=== PATIENT | female | born 1955 | race Caucasian/White ===

== ENCOUNTER 2017-12-13 10:44 | Day surgery (SDC) | payer BC ==
[~2017-12-13 10:44] MED LIST: Lactated Ringers 1,000 ML IV SCH; Sodium Chloride 0.9% 10 ML Syringe FLUSH PRN; Sodium Chloride 0.9% 2.5 ML Syringe FLUSH PRN
--- NOTE | 2017-12-13 11:14 | PCM.PREANE ---
Preanesthetic Assessment - Anesthesia/Transfusion/Family Hx Anesthesia History: Prior Anesthesia Without Reaction Family History of Anesthesia Reaction: No Transfusion History: No Prior Transfusion(s) Intubation History: Unknown - Review of Systems General: No Symptoms Pulmonary: No Symptoms Cardiovascular: No Symptoms Gastrointestinal: No Symptoms, Other (colonoscopy in was normal) Neurological: No Symptoms Other: Reports: None - Physical Assessment Height: 1.63 m Weight: 90.718 kg ASA Class: 2 Mental Status: Alert & Oriented x3 Airway Class: Mallampati = 2 Dentition: Reports: Normal Dentition Thyro-Mental Finger Breadths: 3 Mouth Opening Finger Breadths: 3 ROM/Head Extension: Full Lungs: Clear to Auscultation, Normal Respiratory Effort Cardiovascular: Regular Rate, Regular Rhythm - Allergies Allergies/Adverse Reactions: Allergies Allergy/AdvReac Type Severity Reaction Status Date / Time No Known Allergies Allergy Verified 12/08/17 10:59 - Blood Blood Available: No - Anesthesia Plan Pre-Op Medication Ordered: None - Acknowledgements Anesthesia Type Planned: MAC Pt an Appropriate Candidate for the Planned Anesthesia: Yes Alternatives and Risks of Anesthesia Discussed w Pt/Guardian: Yes Pt/Guardian Understands and Agrees with Anesthesia Plan: Yes PreAnesthesia Questionnaire HEENT History: Reports: Allergic Rhinitis, Other (See Below) Other HEENT History: 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, wears glasses Cardiovascular History: Reports: High Cholesterol Gastrointestinal History: Reports: None 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: Musculoskeletal History: Reports: Arthritis Endocrine/Metabolic History: Reports: Obesity/BMI 30+ - Past Surgical History Head Surgeries/Procedures: Reports: None HEENT Surgical History: Reports: Naso-Sinus Surgery GI Surgical History: Reports: Colonoscopy () Female Surgical History: Reports: Breast Biopsy Oncologic Surgical History: Reports: Biopsy of Breast - SUBSTANCE USE Smoking Status *Q: Never Smoker Recreational Drug Use History: No - HOME MEDS Home Medications: Home Meds Fluticasone Propionate [Flonase Allergy Relief] 1 spray NASBOTH BID 12/08/17 [ History] Montelukast Sodium 10 mg PO BEDTIME 12/08/17 [History] atorvaSTATin Calcium [Atorvastatin Calcium] 20 mg PO BEDTIME 12/08/17 [History] - CURRENT (IN HOUSE) MEDS Current Meds: Current Medications Lactated Ringer's (Ringers, Lactated) 1,000 mls @ 125 mls/hr IV ASDIRECTED NASIR Sodium Chloride (Saline Flush) 10 ml FLUSH ASDIRECTED PRN PRN Reason: Keep Vein Open Sodium Chloride (Saline Flush) 2.5 ml FLUSH ASDIRECTED PRN PRN Reason: Keep Vein Open
[2017-12-13] MEDS ORDERED: Propofol 200 MG/20 ML SDV ONE ×2 (12:41→13:20)
[2017-12-13] MEDS ORDERED: Lidocaine 2% 5 ML SDV ONE (12:41)
[2017-12-13] MEDS ORDERED: fentaNYL 100 MCG/2 ML SDV ONE (12:41)
[2017-12-13] MEDS ORDERED: Midazolam 1 MG/ML 2 ML SDV ONE (12:42)
--- NOTE | 2017-12-13 13:43 | PCM.OPNOTE ---
- General Post-Op/Procedure Note Date of Surgery/Procedure: 12/13/17 Operative Procedure(s): Screening colonoscopy Findings: 2 ascending colon polyps, transverse colon polyp, hepatic flexure polyp Pre Op Diagnosis: screening colonoscopy Post-Op Diagnosis: 2 ascending colon polyps, transverse colon polyp, hepatic flexure polyp Anesthesia Technique: MAC Primary Surgeon: Brittny Upton Condition: Good
--- NOTE | 2017-12-13 14:00 | PCM.POSTAN ---
POST ANESTHESIA ASSESSMENT - MENTAL STATUS Mental Status: Alert, Oriented - RESPIRATORY Respiratory Status: Respiratory Rate WNL, Airway Patent, O2 Saturation Stable - CARDIOVASCULAR CV Status: Pulse Rate WNL - GASTROINTESTINAL GI Status: No Symptoms - PAIN Pain Score: 0 - POST OP HYDRATION Hydration Status: Adequate & Stable - OBSERVATIONS Free Text/Narrative:: no anesthesia problems
--- NOTE | 2017-12-13 21:33 | OR ---
SURGEON: BRITTNY UPTON MD DATE OF PROCEDURE: 12/13/2017 PREOPERATIVE DIAGNOSIS: Screening colonoscopy. POSTOPERATIVE DIAGNOSES: 1. Transverse colon polyp. 2. Hepatic flexure polyp. 3. Ascending colon polyps x2. PROCEDURE PERFORMED: Colonoscopy. ENDOSCOPIST: Brittny Upton MD ANESTHESIA: MAC. INSTRUMENT USED: Olympus colonoscope. EXTENT OF EXAM: To the cecum. PREPARATION: Good. LIMITATIONS: None. INDICATION FOR EXAMINATION: The patient is a 62-year-old female who presents for a repeat colonoscopy. She had one 10 years ago, which was normal. We discussed the procedure as well as expected perioperative course. We discussed the risks including bleeding, infection, or damage to surrounding structures including perforation. The patient verbalized understanding and wishes to proceed. PROCEDURE IN DETAIL: The patient was brought to the endoscopy suite and placed in a left lateral decubitus position. A time-out was completed verifying the patient's name, age, date of , allergies, and procedure to be performed. Monitored anesthesia care was induced and continuous oxygen was provided via nasal cannula throughout the procedure. After adequate sedation was achieved, a digital rectal exam was performed. This exam was within normal limits. A well-lubricated colonoscope was then inserted in the rectum and advanced under direct visualization at the level of the cecum. The cecum was identified by both visual and anatomic landmarks. A photograph was taken of the cecal cap, however, I was unable to retroflex the scope within the cecum to take a picture due to looping of the scope more proximally. The scope was then fully withdrawn while examining the color, texture, anatomy, and integrity of the mucosa from the cecum to the anal canal. The patient has had 2 polyps in the distal ascending colon. These were removed using a cold biopsy forceps. There was some bleeding with this, however, the bleeding ceased on its own. I continued to monitor the area and checked on it a second time and the area appeared to be hemostatic. The patient also had a small polyp at the hepatic flexure and in the transverse colon. These were both removed using a cold biopsy forceps. Both areas were hemostatic at the end of the biopsy. The remainder of the colonoscopy was normal. The scope was then brought into the rectum and retroflexed to allow visualization of the anal canal opening. This appeared normal and a photograph was taken. The scope was then straightened out and removed from the patient. Cecum to anus time was 16 minutes. The patient tolerated the procedure well and was taken to PACU in stable condition. ENDOSCOPIC DIAGNOSES: 1. Transverse colon polyp. 2. Hepatic flexure polyp. 3. Ascending colon polyp x2. RECOMMENDATIONS: Follow up in clinic in 2 weeks. MARIAM ESPINAL /[id number]
== END 2017-12-13 14:20 | disposition home or self-care (01) ==
LOC: MW.SDS 10:44
PROVIDERS: ATTEND Surgery
DX: Z12.11 Encounter for screening for malignant neoplasm of colon (principal); D12.2 Benign neoplasm of ascending colon; D12.3 Benign neoplasm of transverse colon; J30.2 Other seasonal allergic rhinitis; E78.00 Pure hypercholesterolemia, unspecified; E66.9 Obesity, unspecified; Z68.34 Body mass index [BMI] 34.0-34.9, adult; Z79.899 Other long term (current) drug therapy; Z79.51 Long term (current) use of inhaled steroids; Z98.890 Other specified postprocedural states
CPT/HCPCS: 45380; 88305; J2250; J3010; J7120; J2704

== ENCOUNTER 2021-02-04 06:32 | Day surgery (SDC) | payer BC ==
[~2021-02-04 06:32] MED LIST changes: +Sodium Chloride 0.9% 10 ML SDV IV PRN
[2021-02-04] MEDS ORDERED: Ondansetron 4 MG/2 ML SDV ONE (07:12)
[2021-02-04] MEDS ORDERED: Midazolam 1 MG/ML 2 ML SDV ONE (07:12)
[2021-02-04] MEDS ORDERED: Propofol 200 MG/20 ML SDV ONE ×2 (07:12→08:20)
[2021-02-04] MEDS ORDERED: fentaNYL 100 MCG/2 ML SDV ONE (07:12)
--- NOTE | 2021-02-04 07:17 | PCM.PREANE ---
Preanesthetic Assessment - Anesthesia/Transfusion/Family Hx Anesthesia History: Prior Anesthesia Without Reaction Family History of Anesthesia Reaction: No Transfusion History: No Prior Transfusion(s) Intubation History: Unknown - Review of Systems General: No Symptoms Pulmonary: No Symptoms Cardiovascular: No Symptoms Gastrointestinal: No Symptoms Neurological: No Symptoms Other: Reports: None - Physical Assessment NPO Status Date: 02/04/21 NPO Status Time: 00:05 Vital Signs: Last Vital Signs Temp 98.1 F 02/04/21 06:55 Pulse 78 02/04/21 06:55 Resp 16 02/04/21 06:55 BP 131/68 02/04/21 06:55 Pulse Ox 96 02/04/21 06:55 Height: 5 ft 4 in Weight: 178 lb ASA Class: 2 Mental Status: Alert & Oriented x3 Airway Class: Mallampati = 3 Dentition: Reports: Normal Dentition ROM/Head Extension: Full Lungs: Clear to Auscultation, Normal Respiratory Effort Cardiovascular: Regular Rate, Regular Rhythm - Allergies Allergies/Adverse Reactions: Allergies Allergy/AdvReac Type Severity Reaction Status Date / Time No Known Allergies Allergy Verified 02/04/21 06:59 - Anesthesia Plan Pre-Op Medication Ordered: None - Acknowledgements Anesthesia Type Planned: General Anesthesia Pt an Appropriate Candidate for the Planned Anesthesia: Yes Alternatives and Risks of Anesthesia Discussed w Pt/Guardian: Yes Pt/Guardian Understands and Agrees with Anesthesia Plan: Yes Additional Comments: npo hayfever tob none etoh rare no cv problems par no questions PreAnesthesia Questionnaire HEENT History: Reports: Allergic Rhinitis, Other (See Below) Other HEENT History: 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, wears glasses Cardiovascular History: Reports: High Cholesterol Respiratory History: Reports: None Gastrointestinal History: Reports: Colon Polyp Genitourinary History: Reports: None 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: Musculoskeletal History: Reports: None, Arthritis Neurological History: Reports: None Psychiatric History: Reports: None Endocrine/Metabolic History: Reports: Diabetes, Type II Hematologic History: Reports: None Immunologic History: Reports: None Oncologic (Cancer) History: Reports: None Dermatologic History: Reports: None - Past Surgical History Head Surgeries/Procedures: Reports: None HEENT Surgical History: Reports: Naso-Sinus Surgery Cardiovascular Surgical History: Reports: None Respiratory Surgical History: Reports: None GI Surgical History: Reports: Colonoscopy Female Surgical History: Reports: Breast Biopsy, Breast Reduction, Tubal Ligation Endocrine Surgical History: Reports: None Neurological Surgical History: Reports: None Musculoskeletal Surgical History: Reports: None Oncologic Surgical History: Reports: Biopsy of Breast Dermatological Surgical History: Reports: None - SUBSTANCE USE Tobacco Use Status *Q: Never Tobacco User - HOME MEDS Home Medications: Home Meds Fluticasone Propionate [Flonase Allergy Relief] 1 spray NASBOTH BID PRN 12/08/17 [History] atorvaSTATin Calcium [Atorvastatin Calcium] 20 mg PO BEDTIME 12/08/17 [History] Calcium Carb, Citrate/Vit D3 [Calcium + D3 ER Tablet] 1 tab PO DAILY 01/29/21 [History] Cetirizine HCl [Zyrtec] 10 mg PO DAILY 01/29/21 [History] Glucosam/Chond/Collagen/Hyalur [Glucosamine Chondroitin] 1 tab PO DAILY 01/29/21 [History] Inulin [Fiber Choice] 1 tab.chew CHEW DAILY 01/29/21 [History] Lactobacillus Acidophilus [Probiotic] 1 tab PO DAILY 01/29/21 [History] metFORMIN HCl [Metformin HCl] 1,000 mg PO BID 01/29/21 [History] - CURRENT (IN HOUSE) MEDS Current Meds: Current Medications Lactated Ringer's (Ringers, Lactated) 1,000 mls @ 125 mls/hr IV ASDIRECTED NASIR Last Admin: 02/04/21 06:54 Dose: 125 mls/hr Documented by: Sodium Chloride (Sodium Chloride 0.9% 10 Ml Syringe) 10 ml FLUSH ASDIRECTED PRN PRN Reason: Keep Vein Open Sodium Chloride (Sodium Chloride 0.9% 2.5 Ml Syringe) 2.5 ml FLUSH ASDIRECTED PRN PRN Reason: Keep Vein Open Sodium Chloride (Sodium Chloride 0.9% 10 Ml Syringe) 10 ml FLUSH ASDIRECTED PRN PRN Reason: Keep Vein Open Sodium Chloride (Sodium Chloride 0.9% 2.5 Ml Syringe) 2.5 ml FLUSH ASDIRECTED PRN PRN Reason: Keep Vein Open Sodium Chloride (Sodium Chloride 0.9% 10 Ml Sdv) 10 ml IV ASDIRECTED PRN PRN Reason: IV Use Discontinued Medications Fentanyl (Fentanyl 100 Mcg/2 Ml Sdv) Confirm Administered Dose 100 mcg .ROUTE .STK-MED ONE Stop: 02/04/21 07:13 Midazolam HCl (Midazolam 1 Mg/Ml 2 Ml Sdv) Confirm Administered Dose 2 mg .ROUTE .STK-MED ONE Stop: 02/04/21 07:13 Ondansetron HCl (Ondansetron 4 Mg/2 Ml Sdv) Confirm Administered Dose 4 mg .ROUTE .STK-MED ONE Stop: 02/04/21 07:13 Propofol (Propofol 200 Mg/20 Ml Sdv) Confirm Administered Dose 200 mg .ROUTE .STK-MED ONE Stop: 02/04/21 07:13
--- NOTE | 2021-02-04 08:56 | PCM.OPNOTE ---
- General Post-Op/Procedure Note Date of Surgery/Procedure: 02/04/21 Operative Procedure(s): Diagnostic colonoscopy with polypectomy Findings: Ascending colon polyp x 3, transverse colon polyp x 6 Pre Op Diagnosis: History of colon polyps Post-Op Diagnosis: Ascending colon polyps, transverse colon polyps [place] [facility] [place]geon: Brittny Upton Condition: Good
--- NOTE | 2021-02-04 09:23 | PCM.POSTAN ---
POST ANESTHESIA ASSESSMENT - MENTAL STATUS Mental Status: Alert (no anesthesia problems), Oriented - VITAL SIGNS Vital Signs: Last Vital Signs Temp 98.1 F 02/04/21 06:55 Pulse 74 02/04/21 08:58 Resp 15 02/04/21 08:58 BP 104/59 L 02/04/21 08:58 Pulse Ox 95 02/04/21 08:58 - RESPIRATORY Respiratory Status: Respiratory Rate WNL, Airway Patent, O2 Saturation Stable - CARDIOVASCULAR CV Status: Pulse Rate WNL, Blood Pressure Stable - GASTROINTESTINAL GI Status: No Symptoms - POST OP HYDRATION Hydration Status: Adequate & Stable
--- NOTE | 2021-02-04 09:24 | PCM48HPAN ---
Post Anesthesia Note - EVALUATION WITHIN 48HRS OF ANESTHETIC Vital Signs in Normal Range: Yes Patient Participated in Evaluation: Yes Respiratory Function Stable: Yes Airway Patent: Yes Cardiovascular Function Stable: Yes Hydration Status Stable: Yes Pain Control Satisfactory: Yes Nausea and Vomiting Control Satisfactory: Yes Mental Status Recovered: Yes Vital Signs: Last Vital Signs Temp 98.1 F 02/04/21 06:55 Pulse 74 02/04/21 08:58 Resp 15 02/04/21 08:58 BP 104/59 L 02/04/21 08:58 Pulse Ox 95 02/04/21 08:58
--- NOTE | 2021-02-04 09:49 | PCM48HPAN ---
Post Anesthesia Note - EVALUATION WITHIN 48HRS OF ANESTHETIC Vital Signs in Normal Range: Yes Patient Participated in Evaluation: Yes Respiratory Function Stable: Yes Airway Patent: Yes Cardiovascular Function Stable: Yes Hydration Status Stable: Yes Pain Control Satisfactory: Yes Nausea and Vomiting Control Satisfactory: Yes Mental Status Recovered: Yes Vital Signs: Last Vital Signs Temp 97.0 F 02/04/21 09:05 Pulse 58 L 02/04/21 09:05 Resp 14 02/04/21 09:05 BP 104/60 02/04/21 09:05 Pulse Ox 100 02/04/21 09:05 - COMMENTS/OBSERVATIONS Free Text/Narrative:: no anesthetic complications
--- NOTE | 2021-02-05 21:01 | OR ---
SURGEON: BRITTNY UPTON MD DATE OF PROCEDURE: 02/04/2021 PREOPERATIVE DIAGNOSIS: History of colon polyps. POSTOPERATIVE DIAGNOSES: 1. Ascending colon polyps x 3 2. Transverse colon polyps x 6 PROCEDURE PERFORMED: Diagnostic colonoscopy with polypectomy. PRIMARY SURGEON: Brittny Upton MD. ANESTHESIA: MAC. INSTRUMENT USED: Olympus colonoscope. EXTENT OF EXAM: To the cecum. PREPARATION: Good. LIMITATIONS: None. INDICATIONS FOR EXAMINATION: The patient is a 65-year-old female who was found to have multiple colon polyps three years ago on colonoscopy, and she is due for a repeat scope. I explained the procedure, expected perioperative course, and the risks. She verbalized understanding and wishes to proceed. PROCEDURE IN DETAIL: The patient was brought to the endoscopy suite and placed in the left lateral decubitus position. A time-out was completed verifying the patient's name, age, date of , allergies, and procedure to be performed. Monitored anesthesia care was induced and continuous oxygen was provided via nasal cannula throughout the procedure. After adequate sedation was achieved, a digital rectal exam was performed. This exam was within normal limits. A well-lubricated colonoscope was inserted in the rectum and advanced under direct visualization to the level of the cecum. The cecum was identified by both visual and anatomic landmarks. A photograph was taken of the cecal cap as well as with the scope retroflexed within the cecum. The scope was then fully withdrawn while examining the color, texture, anatomy, and integrity of the mucosa from the cecum to the anal canal. The patient was found to have three sessile ascending colon polyps and six sessile transverse colon polyps. These were removed using a biopsy forceps as well as a hot snare. After this was performed, the scope was then brought into the rectum and retroflexed to allow visualization of the anal canal opening. This appeared normal and a photograph was taken. The scope was then straightened out and fully withdrawn. The cecum to anus time was 39 minutes. The patient tolerated the procedure well and was transferred to the PACU in stable condition. ENDOSCOPIC DIAGNOSES: 1. Three ascending colon polyps. 2. Six transverse colon polyps. RECOMMENDATIONS: Follow up in clinic in 2 weeks. MARIAM ESPINAL /[id number] NAYA
== END 2021-02-04 09:29 | disposition home or self-care (01) ==
LOC: MW.SDS 06:32
PROVIDERS: ATTEND Surgery
DX: Z12.11 Encounter for screening for malignant neoplasm of colon (principal); D12.2 Benign neoplasm of ascending colon; D12.3 Benign neoplasm of transverse colon; E78.00 Pure hypercholesterolemia, unspecified; E11.9 Type 2 diabetes mellitus without complications; Z79.899 Other long term (current) drug therapy; Z98.890 Other specified postprocedural states; Z79.84 Long term (current) use of oral hypoglycemic drugs
CPT/HCPCS: 45380; 45385; 82962; J2250; J2405; J2704; J3010; J7120; 00811

== ENCOUNTER 2022-03-24 06:35 | Day surgery (SDC) | payer MEDICARE, OTHER ==
[2022-03-24] MEDS ORDERED: Lactated Ringers 1,000 ML IV SCH (07:15)
[2022-03-24] MEDS ORDERED: Lidocaine 2% 5 ML SDV ONE (07:37)
[2022-03-24] MEDS ORDERED: Propofol 200 MG/20 ML SDV ONE (07:37)
[2022-03-24] MEDS ORDERED: fentaNYL 100 MCG/2 ML SDV ONE (07:38)
== END 2022-03-24 09:00 | disposition home or self-care (01) ==
LOC: MW.SDS 06:35
PROVIDERS: ATTEND Surgery
DX: D12.6 Benign neoplasm of colon, unspecified (principal); E11.9 Type 2 diabetes mellitus without complications; E78.00 Pure hypercholesterolemia, unspecified; Z79.899 Other long term (current) drug therapy; Z79.84 Long term (current) use of oral hypoglycemic drugs; Z86.010 Personal history of colon polyps; Z98.890 Other specified postprocedural states
CPT/HCPCS: 45378; J2704; J3010; J7120